=== PATIENT | male | born 1990 | race Caucasian/White ===

== ENCOUNTER 2018-03-09 07:35 | Day surgery (SDC) | payer BC, OTHER ==
[2018-03-07 16:59] LABS: Absolute Lymphocytes (CBC) 2.1 K/uL (0.7-4.9); Absolute Monocytes 0.5 K/uL (0.1-1.3); Absolute Neutrophil 3.7 K/uL (1.8-8.0); Basophils % 0.5 % (0-1.3); Eosinophils % 2.7 % (0-4.4); Hematocrit 44.6 % (39.6-49.0); Lymphocytes % 32.3 % (15.3-44.8); MPV 10.7 fL (7.6-11.3); Monocytes % 7.8 % (3.3-12.3); RBC Red Blood Cell Count 4.84 M/uL (4.33-5.43)
[2018-03-09] MEDS ORDERED: Ringers Lactate 1,000 ML IV ONE (08:02)
[2018-03-09] MEDS ORDERED: FENTANYL CITR 100 MCG/2 ML ONE (08:02)
[2018-03-09] MEDS ORDERED: PROPOFOL 200 MG/20 ML VIAL IV ONE ×2 (08:02→08:29)
[2018-03-09] MEDS ORDERED: GLYCOPYRROLATE 0.2 MG/ML SYR ONE ×2 (08:03→09:48)
[2018-03-09] MEDS ORDERED: ROCURONIUM 50 MG/5 ML VIAL IV ONE ×2 (08:03→08:29)
[2018-03-09] MEDS ORDERED: LIDOCAINE 2% MPF 5 ML VIAL ONE ×2 (08:04→08:29)
[2018-03-09] MEDS ORDERED: NEOSTIGMINE 1 MG/ML -5 ML SYRINGE ONE ×2 (08:06→09:54)
[2018-03-09] MEDS ORDERED: ONDANSETRON 4 MG/2 ML VIAL ONE (08:06)
[2018-03-09] MEDS ORDERED: MIDAZOLAM HCL 2 MG/2 ML INJ ONE ×2 (08:13→08:29)
[2018-03-09] MEDS ORDERED: LIDOCAINE 1% W/EPI 1:100,000 MDV 50 ML VIAL ONE (08:21)
[2018-03-09] MEDS ORDERED: OXYMETAZOLINE HCL 0.05% 15ML NAS ONE ×2 (08:21→09:30)
[2018-03-09] MEDS ORDERED: NA CHLORIDE 0.9% 500 ML ONE (08:21)
[2018-03-09] MEDS ORDERED: DEXAMETHASONE 10 MG/ML VIAL ONE (08:29)
[2018-03-09] MEDS ORDERED: FENTANYL CITR 250 MCG/5 ML ONE (08:29)
[2018-03-09] MEDS ORDERED: EPINEPHRINE/PF 1 MG/ML AMP ONE (08:36)
--- NOTE | 2018-03-09 09:42 | P.BOP ---
Preoperative diagnosis: left nasal mass Postoperative diagnosis: mass of left nasal septum Primary procedure: NE with biopsy Facilities Engineer: NONE,NONE Estimated blood loss: 20ml Specimen: left nasal septum mass Findings: vascular, bleeding mass, attached to L mid-septum, near head of MT Anesthesia: General Complications: None Implants: gelfoan packing, L NC Fluids & blood products: crystalloid 600ml Transferred to: Recovery Room Condition: Good
--- NOTE | 2018-03-09 22:09 | OP ---
Date of Procedure: 03/09/2018 Surgeon: Crista Rangel MD Preoperative Diagnosis: Epistaxis with left nasal mass. Postoperative Diagnosis: Epistaxis with left nasal mass with mass of the left nasal septum. Indication For Procedure: Mr. Quezada presented to the ENT clinic with severe epistaxis. During initia l evaluation, he was noted to have a red nasal mass on the left side with uncertain detachment point. The bleeding was controlled with nasal packing and the patient was placed on timolol drops to the n ose for treatment of possible pyogenic granuloma. Approximately 1 month later, in re-evaluation, the mass was unchanged, but no further epistaxis was occurring. Due to the persistent finding of the ma ss, recommendation was made for biopsy. Due to the appearance and likely vascular nature of the mass , decision was made to proceed with biopsy in the operating room. The patient agreed. Description Of Procedure: The patient was brought to the operating room. He was placed under genera l anesthesia via oral endotracheal tube. The head of bed was turned 90 degrees and the nasal hairs w ere trimmed. The left nasal cavity was packed with Afrin-soaked pledgets and after time for effect, a 0-degree endoscope was used to perform a nasal endoscopy. Photo documentation of the mass was unde rtaken. It was red and vascular in appearance with some surrounding mucus. After suctioning the muc us, the mass was carefully manipulated with the suction and appeared to be attached to the nasal sept um. The middle turbinate and lateral nasal wall did not appear to have any involvement. The mass wa s grasped with straight Blakes[place] and a small portion was removed. A second grasper removed all visi ble tumor. The attachment site was noted to bleed [id number] and was packed with Afrin-s oaked pledgets but continued to bleed. Therefore, a suction cautery was used to cauterize the attach ment site and photo documentation of said site was taken. It was located on the mid septum just ante rior to the head of the middle turbinate adjacent to the middle meatus. The area around the site was then injected with 1% lidocaine with epinephrine and a small Gelfoam packing was placed against the site to provide protection during the healing. The patient was then returned to care of anesthesia f or awakening and extubation in the operating room, which proceeded without difficulty. The is other clinical suspicion for undiagnosed sleep apnea. Disposition: The patient will be discharged home later today and follow up with Dr. Juan Carlos grier pathology results. SWETA/BRISA Voice ID: [id number] Report ID: [id number]
== END 2018-03-09 11:15 | disposition home or self-care (01) ==
LOC: PRE 07:35
PROVIDERS: ATTEND Otolaryngology
PROC: 09BM8ZX Excision of Nasal Septum, Via Natural or Artificial Opening Endoscopic, Diagnostic (ICD-10-PCS; principal; 2018-03-09 08:30)
DX: L98.0 Pyogenic granuloma (principal); D18.09 Hemangioma of other sites; R04.0 Epistaxis; E66.01 Morbid (severe) obesity due to excess calories; Z68.41 Body mass index [BMI] 40.0-44.9, adult
CPT/HCPCS: 36415; 85025; 88304; 88305; J0171; J1100; J2250; J2405; J2704; J2710; J3010